=== PATIENT | male | born 1985 | race Caucasian/White ===

== ENCOUNTER 2023-09-06 17:35 | Emergency (ER) | payer OTHER ==
[~2023-09-06] VITALS: Ht 170.2 cm; Wt 119.7 kg
[2023-09-06 17:49] VITALS: BP 147/68; PULSE 59; RESP 20; TEMP 99.4; O2SAT 100
[2023-09-06 18:00] VITALS: O2SAT 100
[2023-09-06] MEDS: ACETAMINOPHEN 325 MG TAB PO ONE (18:42)
[2023-09-06] MEDS: methocarbamoL 500 MG TAB PO STA (18:43)
[2023-09-06] MEDS: LIDOCAINE 5% 1 EA PATCH TP ONE (18:44)
[2023-09-06] MEDS: KETOROLAC 30 MG/ML VIAL IM ONE (18:45)
[2023-09-06] MEDS ORDERED: IBUP-2213 PO (19:36)
[2023-09-06] MEDS ORDERED: METH-1681 PO (19:36)
[2023-09-06] MEDS ORDERED: ACET-10509 PO (19:36)
== END 2023-09-06 19:44 | disposition home or self-care (01) ==
LOC: MED 17:35
DX: S33.5XXA Sprain of ligaments of lumbar spine, initial encounter (principal); Z79.899 Other long term (current) drug therapy; X50.0XXA Overexertion from strenuous movement or load, initial encounter; Y92.89 Other specified places as the place of occurrence of the external cause; Y93.89 Activity, other specified; Y99.8 Other external cause status
CPT/HCPCS: 96372; 99284; J1885